=== PATIENT | male | born 1980 | race Caucasian/White ===

== ENCOUNTER 2021-11-17 21:08 | Emergency (ER) | payer BC ==
[~2021-11-17] VITALS: Ht 172.7 cm; Wt 108.9 kg
[2021-11-17] MEDS ORDERED: ACETAM (21:21)
[2021-11-17] MEDS ORDERED: OXYCODONE (21:21)
[2021-11-17] MEDS ORDERED: TAMSULOSIN (21:21)
[2021-11-17 21:23] LABS: BILIRUBIN,URINE NEGATIVE (NEGATIVE); CLARITY,URINE CLEAR; COLOR,URINE YELLOW; GLUCOSE, URINE (UA) NEGATIVE (NEGATIVE); KETONES,URINE TRACE (NEGATIVE); LEUKOCYTE ESTERASE ,URINE NEGATIVE (NEGATIVE); NITRITE,URINE NEGATIVE (NEGATIVE); PROTEIN,URINE NEGATIVE (NEGATIVE)
--- NOTE | 2021-11-17 21:25 | ED Abdominal Pain ---
General Chief Complaint: Abdominal/GI Problems Stated Complaint: KIDNEY STONES History of Present Illness Date Seen by Provider: Nov 17, 2021 Time Seen by Provider: 21:09 Initial Comments Patient to the ER by private conveyance with chief complaint of pain related to a kidney stone discovered on the right mid ureter at [facility] yesterday on CT scan. He brought a copy of the report. 5 mm stone noted mid ureter. No x-ray report. He was referred to Dr. Castro but has not seen him today. Is been using the Percocet 10 x 325 without relief of pain. He has not been using ibuprofen. He is not having significant nausea or vomiting. Every time he takes the Flomax he says the pain and nausea gets worse. He was not given a nausea medicine nor was he given an antibiotic. He is not having fevers or chills. He rates the pain as a 10-11 out of 12. Allergies and Home Medications Allergies Coded Allergies: cephalexin (Verified Allergy, Unknown, 11/17/21) Patient Home Medication List Home Medication List Reviewed: Yes Diclofenac Sodium (Diclofenac Sodium) 25 Mg Tablet.dr, 25 MG PO Q8H PRN for PAIN-BREAKTHROUGH Prescribed by: LETICIA COFFEY on 11/17/212203 Hydrocodone/Acetaminophen (Hydrocodone-Acetamin 10-325 mg) 10 Mg-325 Mg Tablet, 1-2 EACH PO Q6H PRN for pain Prescribed by: LETICIA COFFEY on 11/17/212204 Ondansetron HCl (Ondansetron HCl) 4 Mg Tablet, 4-8 MG PO Q6H PRN for NAUSEA/VOMITING-1ST LINE Prescribed by: LETICIA COFFEY on 11/17/212203 [Oxycodone/Acetam] , (Reported) Entered as Reported by: DIGNA MOSES on 11/17/212120 Last Action: New Order [Tamsulosin] , (Reported) Entered as Reported by: DIGNA MOSES on 11/17/212120 Last Action: New Order Review of Systems Review of Systems Constitutional: No chills, No diaphoresis EENTM: No Blurred Vision, No Double Vision Respiratory: Denies Cough, Denies Orthopnea Cardiovascular: Denies Chest Pain, Denies Edema Gastrointestinal: See HPI, Abdominal Pain; Denies Constipated, Denies Diarrhea; Nausea; Denies Vomiting Genitourinary: Denies Burning, Denies Discharge Musculoskeletal: No back pain, No joint pain Skin: No pruritus, No rash Psychiatric/Neurological: Denies Headache, Denies Numbness All Other Systems Reviewed Negative Unless Noted: Yes Past Vsasoeq-Hupjxu-Qsvuku Hx Patient Social History Tobacco Use?: No Use of E-Cig and/or Vaping dev: No Substance use?: No Physical Exam Vital Signs Vital Signs - First Documented 11/17/21 21:14 Temp 36.4 Pulse 79 Resp 18 B/P (MAP) 178/106 (130) Pulse Ox 97 O2 Delivery Room Air Capillary Refill : Height/Weight/BMI Height: '" Weight: lbs. oz. kg; BMI Method: General Appearance: WD/WN, mild distress HEENT: PERRL/EOMI, pharynx normal Neck: full range of motion, supple, normal inspection Respiratory: no respiratory distress, no accessory muscle use Cardiovascular: normal peripheral pulses, regular rate, rhythm Gastrointestinal: non tender, soft Extremities: non-tender, normal capillary refill Back: CVA tenderness (R); No CVA tenderness (L) Neurologic/Psychiatric: alert, normal mood/affect, oriented x 3 Progress/Results/Core Measures Results/Orders Lab Results Laboratory Tests Test 11/17/21 21:17 Range/Units Urine Color YELLOW Urine Clarity CLEAR Urine pH 6.0 5-9 Urine Specific [place] 1.025 H 1.016-1.022 Urine Protein NEGATIVE NEGATIVE Urine Glucose (UA) NEGATIVE NEGATIVE Urine Ketones TRACE H NEGATIVE Urine Nitrite NEGATIVE NEGATIVE Urine Bilirubin NEGATIVE NEGATIVE Urine Urobilinogen 0.2 < = 1.0 MG/DL Urine Leukocyte Esterase NEGATIVE NEGATIVE Urine RBC (Auto) 3+ H NEGATIVE Urine RBC 10-25 H /HPF Urine WBC 0-2 /HPF Urine Squamous Epithelial Cells RARE /HPF Urine Crystals NONE /LPF Urine Bacteria NEGATIVE /HPF Urine Casts NONE /LPF Urine Mucus SMALL H /LPF Urine Culture Indicated NO My Orders Orders - LETICIA COFFEY Ua Culture If Indicated (11/17/21 21:10) Ketorolac Injection (Toradol Injection) (11/17/21 21:30) Abdomen/Kub 1view (11/17/21 21:21) Hydrocodone/Apap 10/325 Tablet (Lortab 1 (11/17/21 22:00) Medications Given in ED Current Medications Medications Dose Ordered Sig/Valentin Route Start Time Stop Time Status Last Admin Dose Admin Acetaminophen/ Hydrocodone Bitart 2 ea ONCE ONCE PO 11/17/21 22:00 11/17/21 22:01 DC 11/17/21 21:59 2 EA Ketorolac Tromethamine 60 mg ONCE ONCE IM 11/17/21 21:30 11/17/21 21:31 DC 11/17/21 21:28 60 MG Vital Signs/I&O 11/17/21 21:14 Temp 36.4 Pulse 79 Resp 18 B/P (MAP) 178/106 (130) Pulse Ox 97 O2 Delivery Room Air Progress Progress Note #1: Time: 21:25 Progress Note Patient is here for symptom control. We will get a urinalysis so we can look for signs of infection. We will get an x-ray of his abdomen to see if we can note a 5 mm stone on the right. We will also give him 60 mg IM Toradol. If the Toradol helps we will send him home with some diclofenac. Progress Note #2: Time: 21:55 Progress Note The patient had a significant reduction of pain from 11 out of 10 down to 8 out of 10. He looks more comfortable. He is not writhing. We are going to trial hydrocodone to see if this works better for him than oxycodone. If so we can give him a course of this as well as diclofenac and instruct him to call Dr. Olivas the urologist tomorrow for outpatient management of his kidney stone. Progress Note #3: Time: 22:23 Progress Note After the hydrocodone the patient was asleep when I entered the room, arouses easily and states his pain is significantly improved. Diagnostic Imaging Diagonstic Imaging: Xray Plain Films/CT/US/NM/MRI: abdomen, pelvis Comments [facility]. [place], [place] NAME: TA FRANCISCO MED REC#: [id number] PT STATUS: REG ER : 1980 PHYSICIAN: LETICIA COFFEY MD ADMIT DATE: 11/17/21/ER Draft Date of Exam:11/17/21 ABDOMEN/KUB 1VIEW Abdomen/KUB 1view INDICATION: Abdominal pain. COMPARISON: None available. TECHNIQUE: AP view of the abdomen. FINDINGS: Nonobstructive bowel gas pattern. A small volume of colonic stool is present. No features of free intraperitoneal air. No abnormal soft tissue mineralization. Normal regional skeleton. IMPRESSION: No radiographic abnormality to account for patient's pain. Dictated on workstation # [id number] Dict: 11/17/212138 Trans: 11/17/212142 [facility] [id number] Interpreted by: LARISSA SULLIVAN MD Electronically signed by: Reviewed: Reviewed by Me Departure Impression Primary Impression: Kidney stone on right side Disposition: HOME, SELF-CARE Condition: Stable Departure-Patient Inst. Decision time for Depature: 22:15 Referrals: ALEJANDRO OLIVAS MD Patient Instructions: Kidney Stones (DC) Add. Discharge Instructions: Call Dr. Olivas, urologist first thing in the morning to continue your management of your kidney stone. Hydrocodone 1 or 2 tablets every 6 hours as needed for pain. Diclofenac 1 tablet every 8 hours as needed for pain. Drink lots of fluids to help flush your kidneys. Ondansetron 1 or 2 tablets every 6 hours as needed to control nausea or vomiting. Return to the nearest ER for intractable pain, fever above 102.5 or other worrisome symptoms. All discharge instructions reviewed with patient and/or family. Voiced understanding. Scripts Diclofenac Sodium (Diclofenac Sodium) 25 Mg Tablet.dr 25 MG PO Q8H PRN for PAIN-BREAKTHROUGH, #9 TAB 0 Refills Prov: LETICIA COFFEY 11/17/21 Ondansetron HCl (Ondansetron HCl) 4 Mg Tablet 4-8 MG PO Q6H PRN for NAUSEA/VOMITING-1ST LINE, #14 TAB 0 Refills Prov: LETICIA COFFEY 11/17/21 Hydrocodone/Acetaminophen (Hydrocodone-Acetamin 10-325 mg) 10 Mg-325 Mg Tablet 1-2 EACH PO Q6H PRN for pain, #20 TAB 0 Refills Prov: LETICIA COFFEY 11/17/21 Work/School Note: Work Release Form Date Seen in the Emergency Department: Nov 17, 2021 Return to Work: Nov 22, 2021 Restrictions: No Restrictions Copy Copies To 1: ALEJANDRO OLIVAS MD, TITUS J Nov 17, 2021 21:25
[2021-11-17] MEDS ORDERED: KETOROLAC 60 MG/2 ML VIAL IM ONE (21:30)
[2021-11-17 21:38] LABS: BACTERIA,URINE NEGATIVE /HPF; SQUAMOUS EPITHELIAL CELL,UR RARE /HPF; WBC,URINE 0-2 /HPF
--- NOTE | 2021-11-17 21:43 | Diagnostic Imaging Report ---
Abdomen/KUB 1view INDICATION: Abdominal pain. COMPARISON: None available. TECHNIQUE: AP view of the abdomen. FINDINGS: Nonobstructive bowel gas pattern. A small volume of colonic stool is present. No features of free intraperitoneal air. No abnormal soft tissue mineralization. Normal regional skeleton. IMPRESSION: No radiographic abnormality to account for patient's pain. Dictated by: Dictated on workstation # [id number]
[2021-11-17] MEDS ORDERED: ONDA-105 PO (22:04)
[2021-11-17] MEDS ORDERED: HYDR-3820 PO (22:04)
[2021-11-17] MEDS ORDERED: DICL25TA9 PO (22:04)
[2021-11-17 22:28] VITALS: BP 139/81
== END 2021-11-17 22:28 | disposition home or self-care (01) ==
LOC: ER 21:12
DX: N20.0 Calculus of kidney (principal)
CPT/HCPCS: 74018; 81000

== ENCOUNTER → 2021-11-22 | Outpatient (CLI) | payer BC ==
[~2021-11-22] MED LIST: ACETAM; DICL25TA9 PO; HYDR-3820 PO; ONDA-105 PO; OXYCODONE; TAMSULOSIN
--- NOTE | 2021-11-22 14:19 | Diagnostic Imaging Report ---
INDICATION: Ureteral stone. 2 views were obtained FINDINGS: The bowel gas pattern is nonspecific. There are no obvious renal or ureteral calcifications. There are several calcifications in the pelvis likely phleboliths. The osseous structures are unremarkable. IMPRESSION: Nonspecific bowel gas pattern Dictated by: Dictated on workstation # [id number]
== END ==
LOC: RAD 12:37
PROVIDERS: ATTEND Urology
DX: N20.1 Calculus of ureter (principal)
CPT/HCPCS: 74018

== ENCOUNTER 2021-11-29 15:07 | Outpatient (CLI) | payer BC ==
[~2021-11-29] VITALS: Ht 172.7 cm; Wt 109.1 kg
== END 2021-11-29 15:47 | disposition home or self-care (01) ==
LOC: PREOP 15:07
PROVIDERS: ATTEND Urology
DX: Z01.818 Encounter for other preprocedural examination (principal)

== ENCOUNTER 2021-11-30 05:59 | Day surgery (SDC) | payer BC ==
[~2021-11-30] VITALS: Ht 172.7 cm; Wt 109.1 kg
[2021-11-30] VITALS (8 sets, daily range): BP systolic 117–143; BP diastolic 69–90
[2021-11-30] MEDS ORDERED: CATHETER FLUSH 10 ML SYR IVP PRN (06:45)
--- NOTE | 2021-11-30 06:56 | Diagnostic Imaging Report ---
INDICATION: Status post ESWL. History of renal calculus. COMPARISON: 11/22/2021 FINDINGS: Single supine radiographic view of the abdomen was obtained and demonstrates nondistended loops of small bowel. There is no large collection of free peritoneal air. Mild air and stool are seen scattered throughout the colon. No unexpected extraosseous calcifications or radiopaque foreign bodies are seen. Bony structures show no gross acute abnormalities. IMPRESSION: 1. Nonobstructed small bowel gas pattern. Dictated by: Dictated on workstation # [id number]
--- NOTE | 2021-11-30 07:11 | Progress Note-Pre Operative ---
Pre-Operative Progress Note H&P Reviewed The H&P was reviewed, patient examined and no changes noted. Date Seen by Provider: Nov 30, 2021 Time Seen by Provider: 07:10 Date H&P Reviewed: Nov 30, 2021 Time H&P Reviewed: 07:10 Pre-Operative Diagnosis: RT URETERAL STONE ALEJANDRO OLIVAS MD Nov 30, 2021 07:11
[2021-11-30] MEDS ORDERED: SEVOFLURANE (ULTANE) 15 ML INHAL SOLN ONE (08:41)
[2021-11-30] MEDS ORDERED: LIDOCAINE PF 2% 5 ML (XYLOCAINE) VIAL ONE (08:41)
[2021-11-30] MEDS ORDERED: ONDANSETRON 4 MG/2 ML (SDV) Z0FRAN ONE (08:41)
[2021-11-30] MEDS ORDERED: fentaNYL INJ 100 MCG/2 ML AMP ONE (08:41)
[2021-11-30] MEDS ORDERED: MIDAZOLAM 2 MG/2 ML (VERSED) VIAL ONE (08:41)
[2021-11-30] MEDS ORDERED: proPOfol 200 MG/20 ML (DIPRIVAN) VIAL IV ONE (08:41)
[2021-11-30] MEDS ORDERED: ROCURONIUM 50 MG/5 ML (ZEMURON) VIAL IV ONE (09:28)
[2021-11-30] MEDS ORDERED: GLYCOPYRROLATE 0.2 MG/ML (ROBINUL) 2 ML VIAL ONE (09:40)
[2021-11-30] MEDS ORDERED: NEOSTIGMINE 3 MG/3 ML VIAL ONE (09:41)
[2021-11-30] MEDS ORDERED: KETOROLAC 30 MG/ML VIAL ONE (09:47)
--- NOTE | 2021-11-30 09:59 | Progress Note-Post Operative ---
Post-Operative Progess Note Surgeon (s)/Industrial Maintenance Repairer (s) Surgeon ALEJANDRO OLIVAS MD Industrial Maintenance Repairer: NONE Pre-Operative Diagnosis RT URETERAL STONE Post-Operative Diagnosis SAME Procedure & Operative Findings Date of Procedure 11/30/21 Procedure Performed/Findings RT URETEROSCOPY AND RETROGRADE UROGRAM Anesthesia Type GENERAL Estimated Blood Loss Estimated blood loss (mL): NONE Specimens/Packing Specimens Removed NONE Packing: NONE ALEJANDRO OLIVAS MD Nov 30, 2021 09:59
[2021-11-30] MEDS ORDERED: HYDROmorphone 2 MG/ML VIAL (DILAUDID) IV ONE (10:00)
[2021-11-30] MEDS ORDERED: ONDANSETRON 4 MG/2 ML (SDV) Z0FRAN IVP PRN (10:00)
--- NOTE | 2021-11-30 10:03 | Discharge Inst-Urology ---
Discharge Inst-Urology Reconcile Patient Problems Problems Reviewed?: Yes Final Diagnosis RT URETERAL STONE Patient Instructions/Follow Up Plan/Assessment/Instructions Please make appointment to been seen in office in 4 weeks. No KUB's May resume work tomorrow, no restrictions Increase oral fluids for 48 hours and then as needed. Diet and Activity as tolerated. If questions or concerns contact your physician Or seek help at emergency department. ALEJANDRO OLIVAS MD Nov 30, 2021 10:03
--- NOTE | 2021-11-30 11:40 | Anesthesia-General Post-Op ---
General Patient Condition Mental Status/LOC: Same as Preop Cardiovascular: Satisfactory Nausea/Vomiting: Absent Respiratory: Satisfactory Pain: Controlled Complications: Absent Post Op Complications Complications None Follow Up Care/Instructions Patient Instructions None needed. Anesthesia/Patient Condition Patient Condition Patient is doing well, no complaints, stable vital signs, no apparent adverse anesthesia problems. No complications reported per nursing. D/C home per [facility] Criteria: Yes GABBY EASTMAN CRNA Nov 30, 2021 11:40
--- NOTE | 2021-11-30 16:37 | OPERATIVE REPORT ---
DATE OF SERVICE: 11/30/2021 PREOPERATIVE DIAGNOSIS: Right ureteral stone. POSTOPERATIVE DIAGNOSIS: Right ureteral stone. OPERATION PERFORMED: Right ureteroscopy and retrograde urogram. SURGEON: Tyler Olivas MD. ANESTHESIA: General. COMPLICATIONS: None. DESCRIPTION OF PROCEDURE: Under satisfactory general anesthesia, the patient in lithotomy position, genitalia were prepped and draped in the usual sterile fashion. I noted a glanular hypospadias. Cystoscope was introduced under vision. The anterior urethra was normal. The prostate was nonobstructing, but there was a high riding bar. Bladder was entered, revealed mild trabeculations, no ureteric orifices, normal in shape, size and configuration with clear efflux, equal on both sides. No foreign body, bladder tumors or stones were visualized. Using the foroblique lens, I dilated the right ureteral orifice intramural portion and passed a ureteral catheter all the way up to the renal pelvis without any difficulty or resistance whatsoever. I passed a 6.9-Yoruba semi-rigid ureteroscope all the way up to the proximal ureter up and down. There were no stones. I then backed up to the distal ureter, injected contrast. There was no filling defect, no dilatation of the ureter removing the ureteroscope for complete emptying and fast emptying of the contrast from the kidney and the ureter. Again, no filling defects. The ureteroscope was removed. The cystoscope was reinserted to empty the bladder. The patient tolerated the procedure and anesthesia well and was sent to recovery room in stable condition. Job ID: [id number] DocumentID: [id number] Dictated Date: 11/30/2021 10:05:45 Clay Carman Date: 11/30/2021 16:36:51 Dictated By: TYLER OLIVAS MD
== END 2021-11-30 11:40 | disposition home or self-care (01) ==
LOC: SDC 05:59
PROVIDERS: ATTEND Urology
DX: N20.1 Calculus of ureter (principal)
CPT/HCPCS: 74018; 76000; 87081